=== PATIENT | male | born 1965 | race Caucasian/White ===

== ENCOUNTER 2017-09-25 11:40 | Emergency (ER) | payer SELFPAY ==
[~2017-09-25] VITALS: Ht 180.3 cm; Wt 163.8 kg
[2017-09-25 13:56] LABS: BASO # 0.1 x10^3/uL (0.0-0.2); BASO % 1 % (0-3); EOS % 0 % (0-3); HEMATOCRIT 48.5 % (39.0-53.0); HEMOGLOBIN 15.8 g/dL (13.0-17.5); LYMPH # 1.5 x10^3/uL (1.0-4.8); LYMPH % 17 % (24-48); MEAN CORPUSCULAR HEMOGLOBIN 32 pg (25-35); MEAN CORPUSCULAR HGB CONC 33 g/dL (31-37); MEAN CORPUSCULAR VOLUME 99 fL (79-100); MONO # 0.7 x10^3/uL (0.0-1.1); MONO % 8 % (0-9); NEUT # 6.4 x10^3uL (1.8-7.7); NEUT % 74 % (31-73); PLATELET COUNT 171 x10^3/uL (140-400); RED BLOOD COUNT 4.88 x10^6/uL (4.30-5.70); RED CELL DISTRIBUTION WIDTH 14.7 % (11.5-14.5); WHITE BLOOD COUNT 8.7 x10^3/uL (4.0-11.0)
[2017-09-25 14:08] LABS: ALBUMIN 2.2 g/dL (3.4-5.0); ALBUMIN/GLOBULIN RATIO 0.6 (1.0-1.7); GFR 78.5; POTASSIUM 4.4 mmol/L (3.5-5.1); TOTAL BILIRUBIN 0.5 mg/dL (0.2-1.0); TOTAL PROTEIN 5.6 g/dL (6.4-8.2)
[2017-09-25 15:57] LABS: CLARITY,URINE CLEAR; COLOR,URINE YELLOW
[2017-09-25 15:58] LABS: BILIRUBIN,URINE NEG (NEG); GLUCOSE,URINE NEG (NEG)
[2017-09-25 15:59] LABS: BACTERIA,URINE 0 /HPF (0-FEW); NITRITE,URINE NEG (NEG); SQUAMOUS EPITHELIAL CELL,UR OCC /LPF; UROBILINOGEN,URINE 1 mg/dL (0.2 mg/dL)
--- NOTE | 2017-09-25 16:00 | RAD ---
Testicular ultrasound dated 09/25/2017. No comparison available. Clinical data indication: Scrotal swelling FINDINGS: The right testicle measures 4.0 x 3.1 x 2.6 cms. Left testicle measures 4.0 x 3.1 x 2.6 cm. No focal testicular mass. Normal color Doppler flow and waveforms to both testicles. Incidental note is made of a small scrotal gregory on the right. There is diffuse scrotal wall thickening with bilateral hydroceles, right greater than left. Epididymides are not well evaluated due to scrotal wall thickening. No significant varicocele. IMPRESSION: 1. Normal sonographic appearance of the testicles. 2. Diffuse scrotal wall thickening, nonspecific. Consider related to cellulitis or vasogenic causes of edema. The epididymides are not well evaluated and underlying epididymitis cannot be excluded. 3. Bilateral hydroceles, right greater than left. Electronically signed by: Florencio Cabrera MD (09/25/2017 3:56 PM) [facility] [place]
[2017-09-25 16:09] VITALS: BP 154/65
--- NOTE | 2017-09-25 16:31 | PHYS DOC ---
Past History Past Medical History: No Pertinent History Past Surgical History: No Surgical History Alcohol Use: Rarely Drug Use: None Adult General Chief Complaint Chief Complaint: URINARY RETENTION HPI HPI 51-year-old male presents with severe scrotal swelling for the last 1 week and difficulty urinating. He said that he has just started to have swelling in his scrotum this seemed to start spontaneously. He denies any trauma or injury. As it has enlarged, he has had increasing difficulty with urinating. His scrotum is now the size of a bocce ball so he thought he should come to the ED. He denies fever or chills. He denies penile discharge. For the last 1 month, the patient has had increased lower extremity swelling and some abdominal swelling. He is not on any Lasix or other water pill. He does not have a diagnosis of CHF. He is morbidly obese. He denies fever, chills, cough, shortness of breath, chest pain. Review of Systems Review of Systems Constitutional: Denies fever or chills [] Eyes: Denies change in visual acuity, redness, or eye pain [] HENT: Denies nasal congestion or sore throat [] Respiratory: Denies cough or shortness of breath [] Cardiovascular: No additional information not addressed in HPI [] GI: Denies abdominal pain, nausea, vomiting, bloody stools or diarrhea [] : Severe edema of the scrotum with erythema but not warm. Patient has evidence of yeast infection on bilateral thighs and pannus.[] Musculoskeletal: Bilateral 3+ lower extremity edema up to the waist [] Integument: Denies rash or skin lesions [] Neurologic: Denies headache, focal weakness or sensory changes [] Endocrine: Denies polyuria or polydipsia [] All other systems were reviewed and found to be within normal limits, except as documented in this note. Physical Exam Physical Exam Constitutional: Well developed, well nourished, no acute distress, non-toxic appearance. [] HENT: Normocephalic, atraumatic, bilateral external ears normal, oropharynx moist, no oral exudates, nose normal. [] Eyes: PERRLA, EOMI, conjunctiva normal, no discharge. [] Neck: Normal range of motion, no tenderness, supple, no stridor. [] Cardiovascular:Heart rate regular rhythm, no murmur [] Lungs & Thorax: Bilateral breath sounds clear to auscultation [] Abdomen: Bowel sounds normal, soft, no tenderness, no masses, no pulsatile masses. [] Skin: Warm, dry, no erythema, no rash. [] Back: No tenderness, no CVA tenderness. [] Extremities: No tenderness, no cyanosis, no clubbing, ROM intact, no edema. [] Neurologic: Alert and oriented X 3, normal motor function, normal sensory function, no focal deficits noted. [] Psychologic: Affect normal, judgement normal, mood normal. [] Current Patient Data Vital Signs Vital Signs Date Time Temp Pulse Resp B/P (MAP) Pulse Ox O2 Delivery O2 Flow Rate FiO2 09/25/17 16:09 83 18 154/65 (94) 91 Room Air 09/25/17 12:15 98.7 Lab Results Laboratory Tests Test 09/25/17 13:32 09/25/17 14:57 White Blood Count 8.7 x10^3/uL (4.0-11.0) Red Blood Count 4.88 x10^6/uL (4.30-5.70) Hemoglobin 15.8 g/dL (13.0-17.5) Hematocrit 48.5 % (39.0-53.0) Mean Corpuscular Volume 99 fL (79-100) Mean Corpuscular Hemoglobin 32 pg (25-35) Mean Corpuscular Hemoglobin Concent 33 g/dL (31-37) Red Cell Distribution Width 14.7 % (11.5-14.5) H Platelet Count 171 x10^3/uL (140-400) Neutrophils (%) (Auto) 74 % (31-73) H Lymphocytes (%) (Auto) 17 % (24-48) L Monocytes (%) (Auto) 8 % (0-9) Eosinophils (%) (Auto) 0 % (0-3) Basophils (%) (Auto) 1 % (0-3) Neutrophils # (Auto) 6.4 x10^3uL (1.8-7.7) Lymphocytes # (Auto) 1.5 x10^3/uL (1.0-4.8) Monocytes # (Auto) 0.7 x10^3/uL (0.0-1.1) Eosinophils # (Auto) 0.0 x10^3/uL (0.0-0.7) Basophils # (Auto) 0.1 x10^3/uL (0.0-0.2) Sodium Level 143 mmol/L (136-145) Potassium Level 4.4 mmol/L (3.5-5.1) Chloride Level 103 mmol/L (98-107) Carbon Dioxide Level 39 mmol/L (21-32) H Anion Gap 1 (6-14) L Blood Urea Nitrogen 21 mg/dL (8-26) Creatinine 1.0 mg/dL (0.7-1.3) Estimated GFR (Cockcroft-Gault) 78.5 BUN/Creatinine Ratio 21 (6-20) H Glucose Level 99 mg/dL (70-99) Calcium Level 9.0 mg/dL (8.5-10.1) Total Bilirubin 0.5 mg/dL (0.2-1.0) Aspartate Amino Transferase (AST) 43 U/L (15-37) H Alanine Aminotransferase (ALT) 37 U/L (16-63) Alkaline Phosphatase 86 U/L (46-116) Total Protein 5.6 g/dL (6.4-8.2) L Albumin 2.2 g/dL (3.4-5.0) L Albumin/Globulin Ratio 0.6 (1.0-1.7) L Urine Collection Type Unknown Urine Color Yellow Urine Clarity Clear Urine pH 7.0 Urine Specific Carey >=1.030 Urine Protein >100 mg/dl (NEG-TRACE) Urine Glucose (UA) Neg mg/dL (NEG) Urine Ketones (Stick) Neg mg/dL (NEG) Urine Blood Small (NEG) Urine Nitrite Neg (NEG) Urine Bilirubin Neg (NEG) Urine Urobilinogen Dipstick 1 mg/dL (0.2 mg/dL) Urine Leukocyte Esterase Neg (NEG) Urine RBC 6-10 /HPF (0-2) Urine WBC 1-4 /HPF (0-4) Urine Squamous Epithelial Cells Occ /LPF Urine Bacteria 0 /HPF (0-FEW) Urine Mucus Mod /LPF EKG EKG [] Radiology/Procedures Radiology/Procedures Testicular ultrasound dated 09/25/2017. No comparison available. Clinical data indication: Scrotal swelling FINDINGS: The right testicle measures 4.0 x 3.1 x 2.6 cms. Left testicle measures 4.0 x 3.1 x 2.6 cm. No focal testicular mass. Normal color Doppler flow and waveforms to both testicles. Incidental note is made of a small scrotal gregory on the right. There is diffuse scrotal wall thickening with bilateral hydroceles, right greater than left. Epididymides are not well evaluated due to scrotal wall thickening. No significant varicocele. IMPRESSION: 1. Normal sonographic appearance of the testicles. 2. Diffuse scrotal wall thickening, nonspecific. Consider related to cellulitis or vasogenic causes of edema. The epididymides are not well evaluated and underlying epididymitis cannot be excluded. 3. Bilateral hydroceles, right greater than left. Electronically signed by: Florencio Cabrera MD (09/25/2017 3:56 PM) [facility] – [place][] Course & Med Decision Making Course & Med Decision Making Pertinent Labs and Imaging studies reviewed. (See chart for details) The patient's labs are unremarkable. His ultrasound shows severe swelling, but the testicles are intact. It is indeterminate if there is infection of the epididymis. I will treat him for epididymitis with levofloxacin for 10 days. I have additionally provided urology phone number for follow-up.. Respiratory extremity swelling I will start patient on Lasix 20 mg daily and advised that he follow-up with a PCP as soon as possible. [] Dragon Disclaimer Dragon Disclaimer This electronic medical record was generated, in whole or in part, using a voice recognition dictation system. Departure Departure: Referrals: PCP,ANGELINE (PCP) Scripts Furosemide (LASIX) 20 Mg Tablet 1 TAB PO DAILY, #30 TAB 5 Refills Prov: DORIAN BALTAZAR DO 09/25/17 Levofloxacin (LEVOFLOXACIN) 500 Mg Tablet 1 TAB PO DAILY, #10 TAB Prov: DORIAN BALTAZAR DO 09/25/17 DORIAN BALTAZAR DO September 25, 2017 16:31
[2017-09-25] MEDS ORDERED: LEVO500T8 PO (17:21)
[2017-09-25] MEDS ORDERED: FURO-69 PO (17:21)
[2017-09-25] MEDS ORDERED: levoFLOXacin 500 MG TABLET PO ONE (17:30)
== END 2017-09-25 17:37 | disposition home or self-care (01) ==
LOC: ER 11:40
DX: N45.1 Epididymitis (principal); R22.43 Localized swelling, mass and lump, lower limb, bilateral; R19.00 Intra-abdominal and pelvic swelling, mass and lump, unspecified site; E66.01 Morbid (severe) obesity due to excess calories
CPT/HCPCS: 36415; 76870; 80053; 81001; 85025; 99285-25

== ENCOUNTER 2019-04-08 11:42 | Emergency (ER) | payer SELFPAY ==
[~2019-04-08 11:42] MED LIST: FURO-69 PO; LEVO500T8 PO
[2019-04-08] MEDS ORDERED: CEPH-264 PO (12:11)
--- NOTE | 2019-04-08 12:11 | PHYS DOC ---
Past History Past Medical History: No Pertinent History Past Surgical History: No Surgical History Smoking: Cigarettes Alcohol Use: Rarely Drug Use: None Adult General Chief Complaint Chief Complaint: URINARY RETENTION HPI HPI Patient presents to the emergency department for evaluation. He states the past 2 weeks, he has had some edema and firmness to the skin overlying his pubic area, and he report some discomfort, but no significant pain. He has not had any fevers or chills. He does report some discomfort with urinating but is able to urinate without any difficulty. He has not had any flank pain. He admits to some nasal congestion and stuffiness as well. He states he had an episode of epididymitis in the spring of last year, and did go to urology for follow-up twice and states that his symptoms improved after he was given antibiotics. There are no alleviating or exacerbating factors to the patient's symptoms otherwise. Review of Systems Review of Systems Constitutional: Denies fever or chills [] Eyes: Denies change in visual acuity, redness, or eye pain [] HENT: Denies nasal congestion or sore throat [] Respiratory: Denies cough or shortness of breath [] Cardiovascular: The patient denies any shortness of breath, chest pain, palpitations, or orthopnea[] GI: Denies abdominal pain, nausea, vomiting, bloody stools or diarrhea [] : Denies dysuria or hematuria [] Musculoskeletal: Denies back pain or joint pain [] Integument: Denies rash or skin lesions, except as noted in the history of present illness [] Neurologic: Denies headache, focal weakness or sensory changes [] Endocrine: Denies polyuria or polydipsia [] All other systems were reviewed and found to be within normal limits, except as documented in this note. Allergies Allergies Allergies Coded Allergies Type Severity Reaction Last Updated Verified No Known Drug Allergies 09/25/17 No Physical Exam Physical Exam PHYSICAL EXAM: CONSTITUTIONAL: Well developed, well nourished HEAD: normocephalic, atraumatic EENT: PERRL, EOMI. Conjunctivae normal color, sclerae non-icteric; moist mucous membranes. NECK: Supple, non-tender; no meningismus. LUNGS: Lungs CTA, breathing even and unlabored. Normal air movement. HEART: Regular rate and rhythm, no murmur CHEST: No deformity; non-tender ABDOMEN: The abdomen is soft, and non-tender, no masses or bruits. EXTREM: Normal ROM; no deformity, no calf tenderness. Normal pulses palpable in all extremities. There is no pedal edema. SKIN: No rash; no diaphoresis NEURO: Alert; normal speech and cognition; CN's grossly intact; strength grossly intact without focal deficit. BACK: No CVA TTP. GENITOURINARY: Normal external genitalia. There is no testicular tenderness to palpation. There is no abnormality noted to the male genitalia. The skin of the scrotum and the perineum is unremarkable, with the exception of some mild folliculitis of the upper thighs bilaterally and medially. There is some thickening to the skin of the pubis, superior to the perineum, without tenderness to palpation, warmth or erythema. Differential diagnosis includes panniculitis, hematoma, or abscess/cellulitis, although the latter are not favored. EKG EKG [] Radiology/Procedures Radiology/Procedures [] Course & Med Decision Making Course & Med Decision Making 12:05 PM: The patient's condition has been present for several weeks and is stable, I discussed the importance of close outpatient follow-up, as well as a therapeutic trial of antibiotics, the need for returning if symptoms persist or worsen, and return precautions. Dragon Disclaimer Dragon Disclaimer This electronic medical record was generated, in whole or in part, using a voice recognition dictation system. Departure Departure: Impression: Primary Impression: Panniculitis Disposition: HOME, SELF-CARE Condition: STABLE Additional Instructions: The exact cause of your symptoms is unclear at this time. Please follow-up with your urologist as an outpatient for further evaluation. You may call [phone] to schedule an appointment. Scripts Cephalexin (KEFLEX) 500 Mg Capsule 500 MG PO QID for - for 7 Days, #28 CAP Prov: CHAS BARROSO MD 04/08/19 CHAS BARROSO MD Apr 08, 2019 12:11
[2019-04-08 12:54] VITALS: BP 154/99
== END 2019-04-08 12:54 | disposition home or self-care (01) ==
LOC: ER 11:42
DX: M79.3 Panniculitis, unspecified (principal); F17.210 Nicotine dependence, cigarettes, uncomplicated
CPT/HCPCS: 99283